=== PATIENT | male | born 1945 | race Caucasian/White ===

== ENCOUNTER 2018-12-08 05:46 | Day surgery (SDC) | payer OTHER ==
[2018-12-08] VITALS (15 sets, daily range): BP systolic 124–142; BP diastolic 70–82; PULSE 46–62; RESP 11–20; Ht 157.5 cm; Wt 94.1 kg
[~2018-12-08] VITALS: Ht 157.5 cm; Wt 94.1 kg
[2018-12-08] MEDS ORDERED: TETRACAINE 0.5% 4 ML OPH ONE (06:51)
[2018-12-08] MEDS ORDERED: TOBRAMYCIN/DEXAMETH 3.5 GM OPH OINT ONE (06:51)
[2018-12-08] MEDS ORDERED: CARBACHOL 0.01% 1.5 ML OPH INJ ONE (06:51)
[2018-12-08] MEDS ORDERED: LIDOCAINE 1%/EPI 30 ML INJ ONE (06:51)
[2018-12-08] MEDS ORDERED: DEXAMETHASONE 4 MG/ML 1 ML INJ ONE (06:51)
[2018-12-08] MEDS ORDERED: EPINEPHrine 1 MG INJ ONE (06:52)
[2018-12-08] MEDS ORDERED: MOXIFLOXACIN 0.5% 3 ML OPH OPER SCH (07:00)
[2018-12-08] MEDS ORDERED: ACETAZOLAMIDE 250 MG TAB PO ONE (07:00)
[2018-12-08] MEDS ORDERED: TROPICAMIDE 1% 15 ML OPH OPER SCH (07:00)
[2018-12-08] MEDS ORDERED: LIDOCAINE 4% (MPF) 5 ML INJ OPER ONE (07:00)
[2018-12-08] MEDS ORDERED: PHENYLephrine 10% 5 ML OPH OPER SCH (07:00)
[2018-12-08] MEDS ORDERED: DICLOFENAC 0.1% 2.5 ML OPH OPER SCH (07:00)
[2018-12-08] MEDS ORDERED: LIDOCAINE 1.5%/EPI MPF (SDV) 30 ML VIAL ONE (07:02)
--- NOTE | 2018-12-08 07:13 | PREAC ---
Date/Time of Note Date/Time of Note DATE: 12/08/18 TIME: 07:11 Anesthesia Eval and Record Evaluation Time Pre-Procedure Interview DATE: 12/08/18 TIME: 07:11 Age 73 Sex male NPO: 8 hrs Preoperative diagnosis R eye cataract Planned procedure R eye cataract extraction w/ IOL Past Medical History Past Medical History: Includes Cardio: HTN, Dyslipidemia, [place] Endo: Diabetes Surgery & Anesthesia Issues No known issue Meds Anticoagulation: No Beta Olivia within 24 hr: Yes Reason Beta Olivia not given: Pt. not on B-Olivia Current Medications Diclofenac Sodium (Voltaren 0.1%) 1 drop Q5 MIN X 3 OPER ; Start 12/08/18 at 07:00 Moxifloxacin HCl (Vigamox) 1 drop Q5 MIN X 3 OPER ; Start 12/08/18 at 07:00 Phenylephrine HCl (Ak-Dilate 10%) 1 drop Q5 MIN X 3 OPER ; Start 12/08/18 at 07:00 Tropicamide (Mydriacyl 1%) 1 drop Q5 MIN X3 OPER ; Start 12/08/18 at 07:00 Meds reviewed: Yes Allergies Coded Allergies: No Known Allergy (Unverified , 12/07/18) Allergies Reviewed: Yes Labs/Studies Labs Reviewed: Reviewed by anesthesiologist test: N/A Studies: ECG (pacemaker ) Pre-procedure Exam Airway: Adequate mouth opening, Adequate thyromental dist Mallampati: Mallampati III Teeth: Abnormal (lower dentures removed; upper dentures strongly glued in and pt refused to remove; multiple missing teeth) Lung: Normal Heart: Normal ASA Physical Status ASA physical status: 3 Emergency: None Planned Anesthetic General/MAC: MAC Pre-operative Attestations Prior to commencing anesthesia and surgery, the patient was re-evaluated, there was verification of: *The patient's identity *The results of appropriate recent lab work and preoperative vital signs *The above evaluation not changing prior to induction *Anesthetic plan, risk benefits, alternative and complications discussed with patient/family; questions answered; patient/family understands, accepts and wishes to proceed. Director Sales Training used DARSHAN AIKEN Dec 08, 2018 07:13
--- NOTE | 2018-12-08 07:29 | HPN ---
Date/Time of Note Date/Time of Note DATE: 12/08/18 TIME: 07:29 Interval H&P Admission Note Pt. seen H&P reviewed: No system changes ASHLEY GHOTRA Dec 08, 2018 07:29
[2018-12-08] MEDS ORDERED: FENTAnyl 50 MCG/ML VIAL IV PRN (07:30)
[2018-12-08] MEDS ORDERED: ONDANSETRON 4 MG INJ IV PRN (07:30)
[2018-12-08] MEDS ORDERED: LABETALOL HCL 20MG INJ IV PRN (07:30)
[2018-12-08] MEDS ORDERED: FENTAnyl 50 MCG/ML VIAL ONE (07:41)
[2018-12-08] MEDS ORDERED: MIDAZOLAM 1 MG/ML 2 ML INJ ONE (07:41)
[2018-12-08] MEDS ORDERED: ONDANSETRON 4 MG INJ ONE (07:56)
[2018-12-08] MEDS ORDERED: METOCLOPRAMIDE 10 MG INJ ONE (07:56)
[2018-12-08] MEDS ORDERED: TIMOLOL 0.5% 5 ML OPH ONE (08:34)
--- NOTE | 2018-12-08 08:48 | PAC ---
Date/Time of Note Date/Time of Note DATE: 12/08/18 TIME: 08:48 Post-Anesthesia Notes Post-Anesthesia Note Last documented vital signs Vital Signs Date Temp Pulse Resp B/P (MAP) Pulse Ox O2 O2 Flow FiO2 Time Delivery Rate 12/08/18 97.3 62 18 136/79 97 Room Air 08:45 (98) Activity: WNL Respiratory function: WNL Cardiovascular function: WNL Mental status: Baseline Pain reasonably controlled: Yes Hydration appropriate: Yes Nausea/Vomiting absent: Yes NATALIE ARIAS MD Dec 08, 2018 08:48
--- NOTE | 2018-12-08 09:08 | OPR ---
Date/Time of Note Date/Time of Note DATE: 12/08/18 TIME: 08:50 Operative Report Free Text/Dictation Procedure Date: 12/08/2018 Pre-operative diagnosis: Visually significant cataract, RIGHT EYE eye Postoperative diagnosis: 1- Visually significant cataract, RIGHT eye 2- Posterior capsule rupture Procedure: 1- Phacoemulsification with sulcus lens placement, right eye 2- Floppy iris syndrome 2- Anterior vitrectomy, right eye Surgeon: Ashley Ghotra MD Flow Coordinator: none Anesthesia Type: MAC, local anesthesia Anesthesiologist: Dr. Fermin Time: NA Estimated blood loss: None Transfusions: none Specimen: None Grafts/Implants: IOL: [id number], power +20.00, serial [id number] Tubes/Drains: None Complications: post capsular rupture Pt Condition Post Procedure: stable Disposition: home Findings: opacified lens Indications for procedure: The patient is 73 year-old male with Visually significant cataract, who presented with blurred vision and difficulty reading and watching TV. Past medical history is significant for HTN, HLD and DM and BPHand MA Past surgical history of putting pacemaker. The patient is using Latanoprost, amiodarone, ASA, atrovastatin, plavix, glipizide, losartan, metformin, Tamsulosin. The is no known allergy. There is history of glaucoma in the patient, no any other hereditary ophthalmic disease in the family. Review of system is negative except for the blurred vision in the affected eye, shortness of breath. VA in the operated eye is 20/80, IOP 13 mmHg. Pupils are reactive with no RAPD. Slit lamp exam: cornea is clear, mildly shallow anterior chamber, 3+ cortical cataract, 3+ nuclear sclerosis cataract, there is no psudoexfoliation present at the pupillary margin or anterior lens capsule. On funds exam cup/disc ratio is 0.7, macula shows drusen and RPE changes, retina is attached. Risk, benefit and alternative to cataract surgery was explained to the patient, who agreed to proceed with the procedure. The informed consent was signed by the patient. Description of procedure: The patient was seen by me along with anesthesia team in the pre op area and the surgical site was marked and confirmed. Anesthetic drops along with dilating drops was instilled in surgical eye in the pre op. The patient was then brought back to the operating room placed in supine position. The eye was prepped with Betadine 5% and draped in sterile manner for the ophthalmic surgery. An eyelid speculum was was placed to keep the eyelid open. Paracentesis wound was made superiorly and inferiorly though clear cornea near the limbus using 1.2mm side-port blade. Preservative free Lidocaine 1% was injected into the anterior chamber through the paracentesis wound. The anterior chamber was inflated with viscoelastic (viscoat). A keratom blade was used to make a bi- planar, shelved, clear corneal incision, starting at temporal limbus and then tunnel-ing through clear cornea to enter the anterior chamber. A circular curvilinear continue capsulorrhexis was initiated by cystotom and continued with utrata forceps. The capsular flap then was removed. Hydrodissection and hydrodelineation was per-formed using BSS until the lens was freely rotatable. The lens nucleus was then removed using the phacoemulsificati on handpiece. The iris was prolapsing during the surgery due to floppy iris related to use of tamsolusine. There was adhesion between cortex to the capsule. While trying to take the last piece of nucleus out, I saw the nasal posterior capsule to get open. The residual cortex was removed with the bimanual irrigation/aspiration handpieces. Ant vitrectomy was performed until there was no vitreous in AC. The capsular bag and anterior chamber were inflated with viscoelastic, and the sulcus 3 piece IOL was inserted into the sulcus. Using irrigation/Aspiration handpiece on the aspiration mode, Healon was removed from the anterior and posterior chamber. Miostat was injected into the eye to constrict the floppy iris. Main wound was suture with 10.0 nylon and paracent esis wound was hydrated by BSS. Subconjunctival decodran was injected inferiorly. The speculum was removed. Vigamox drops and Sterile antibiotic/steroid ointment was applied to the eye. A cotton patch and clear shield were placed over the operative eye. The patient was transferred to the recovery room in stable condition. Ashley Ghotra MD [id number] ASHLEY GHOTRA Dec 08, 2018 09:08
== END 2018-12-08 10:57 | disposition home or self-care (01) ==
LOC: SDS 05:46
PROVIDERS: ATTEND Ophthalmology
DX: H26.8 Other specified cataract (principal); H21.81 Floppy iris syndrome; I10 Essential (primary) hypertension; E78.5 Hyperlipidemia, unspecified; E11.9 Type 2 diabetes mellitus without complications
CPT/HCPCS: 66984; 71045; 82962; J0171; J1100; J2250; J3010; V2630; Z7512; Z7610; J2405; J2765